=== PATIENT | female | born 1965 | race Asian ===

== ENCOUNTER → 2016-12-22 | Emergency (ER) | payer BC, OTHER ==
[~2016-12-22] MED LIST: ACETAMINOPHEN 325 MG TABLET (FP) ONE; ACETAMINOPHEN 500 MG TABLET (FP) PO ONE; CEFTRIAXONE 1 GM in DEXTROSE 5%-WATER - 50 ML IVPB ONE; CEFTRIAXONE 50 ML ONE; SODIUM CHLORIDE 1,000 ML IV STA
[2016-12-22 14:35] VITALS: BMI 27.9
--- NOTE | 2016-12-22 16:49 | PDOC ---
History of Present Illness - General Chief Complaint: Pain Stated Complaint: SENT BY PCP Time Seen by Provider: 12/22/16 16:13 History Source: Patient Exam Limitations: No Limitations - History of Present Illness Travel History: No Initial Comments: 12/22/16 16:50 51-year-old female sent over by the PCP for further evaluation of ongoing urinary complaints now with suprapubic pressure and back pain. Patient is currently on day 2 of 7 of Cipro secondary to UTI that was diagnosed by Dr. Keller. Patient states has had no chills or fever but does state mild nausea with worsening symptoms. Patient denies history of recurrent UTI, hematuria, constipation, diarrhea, recent illness, or history of immunosuppression. Abdominal Pain Onset Location: reports: suprapubic Pain Radiation: reports: back Activities at Onset: reports: none Aggravating Factors: improves with: None Alleviating Factors: improves with: None Past History - Past Medical History Allergies/Adverse Reactions: Allergies Allergy/AdvReac Type Severity Reaction Status Date / Time No Known Allergies Allergy Verified 12/22/16 14:35 Home Medications: Ambulatory Orders Unobtainable [Unobtainable] 12/22/16 HTN: Yes - Psycho/Social/Smoking Cessation Hx Anxiety: No Suicidal Ideation: No Smoking History: Never smoked Hx Alcohol Use: No Drug/Substance Use Hx: No Substance Use Type: None Patient Lives Alone: No Lives with/in: spouse/SO Review of Systems - Review of Systems Able to Perform ROS?: Yes Constitutional: No: Symptoms Reported HEENTM: No: Symptoms Reported Respiratory: No: Symptoms reported Cardiac (ROS): No: Symptoms Reported ABD/GI: Yes: Abdominal cramping : Yes: Dysuria, Frequency Musculoskeletal: Yes: Back Pain Integumentary: No: Symptoms Reported Neurological: No: Symptoms reported Endocrine: No: Symptoms Reported Hematologic/Lymphatic: No: Symptoms Reported *Physical Exam - Vital Signs Last Vital Signs Temp Pulse Resp BP Pulse Ox 99.2 F 91 H 20 149/77 96 12/22/16 14:31 12/22/16 14:31 12/22/16 14:31 12/22/16 14:31 12/22/16 14:31 - Physical Exam General Appearance: Yes: Nourished, Appropriately Dressed. No: Apparent Distress HEENT: negative: Pale Conjunctivae Respiratory/Chest: positive: Lungs Clear, Normal Breath Sounds. negative: Respiratory Distress, Accessory Muscle Use Cardiovascular: positive: Regular Rhythm, Regular Rate. negative: Murmur Gastrointestinal/Abdominal: positive: Soft, Tenderness (midsuprapubic) Musculoskeletal: positive: CVA Tenderness (mild ) Extremity: positive: Normal Capillary Refill. negative: Pedal Edema ED Treatment Course - LABORATORY CBC & Chemistry Diagram: 12/22/16 17:12 12/22/16 17:12 - RADIOLOGY Radiology Studies Ordered: Category Date Time Status KIDNEY / RENAL US [US] Stat Ultrasound 12/22/16 16:34 Ordered Medical Decision Making - Medical Decision Making 12/22/16 17:02 Patient received diagnosed with UTI presently on day 2 of 7 of Cipro. Patient sent in secondary to worsening symptoms including abdominal pain and back pain since yesterday. Patient concerning for sepsis nephritis. Patient to follow labs, urine, fluids, and ultrasound 12/22/16 20:29 Pt will be given a dose of IV ceftriaxone while awaiting her ultrasound report. Patient will be discharged home with Keflex versus Cipro urine culture was sent today. 12/22/16 20:30 Selected Entries 12/22/16 18:30 Pulse Rate [ 87 Apical] Respiratory 17 Rate Blood Pressure 138/83 [Left Arm] O2 Sat by Pulse 98 Oximetry (%) Laboratory Tests 12/22/16 12/22/16 12/22/16 17:12 17:12 17:12 WBC 13.6 H Hgb 15.2 Hct 45.3 H Plt Count 180 Neutrophils % 83.0 H Sodium 138 Potassium 3.8 Chloride 101 Carbon Dioxide 26 Anion Gap 11 BUN 9 Creatinine 0.7 Creat Clearance w eGFR > 60 Random Glucose 99 Lactic Acid Calcium 9.2 Total Bilirubin 1.2 H AST 26 ALT 48 Urine Protein 1+ H Urine Ketones 1+ H Urine Blood 2+ H Ur Leukocyte Esterase Negative Urine RBC 28 Urine WBC 10 Ur Epithelial Cells Rare Urine Mucus Moderate 12/22/16 17:12 WBC Hgb Hct Plt Count Neutrophils % Sodium Potassium Chloride Carbon Dioxide Anion Gap BUN Creatinine Creat Clearance w eGFR Random Glucose Lactic Acid 1.252 Calcium Total Bilirubin AST ALT Urine Protein Urine Ketones Urine Blood Ur Leukocyte Esterase Urine RBC Urine WBC Ur Epithelial Cells Urine Mucus 12/22/16 20:47 Ultrasound sees a linear hypoechoic area in the lower pole of the right kidney which may represent a stone. There is no signs of hydronephrosis or stranding. Patient will be discharged home with Flomax and changed to Keflex. Patient given report and to follow-up with her PCP. *DC/Admit/Observation/Transfer Diagnosis at time of Disposition: Hematuria, Suprapubic pressure - Discharge Dispostion Disposition: HOME Condition at time of disposition: Improved - Referrals Referrals: Italo Keller MD [Primary Care Provider] - - Patient Instructions Printed Discharge Instructions: DI for Urinary Tract Infection (UTI), DI for Kidney Stones Additional Instructions: I have enclosed information for you to read. I am switching antibiotics to Keflex and adding Flomax to your regimen. Please follow-up with your PCP of bring copy of the ultrasound report with you.
[2016-12-22 17:15] LABS: BASOPHIL 0.2 % (0-2.0); MCH 30.1 pg (25.7-33.7); MCHC 33.5 g/dl (32.0-36.0); MEAN CELL VOLUME 89.9 fl (80-96); MEAN PLT VOLUME 9.2 fl (7.5-11.1); PLATELET COUNT 180 K/MM3 (134-434); RDW 12.6 % (11.6-15.6); WHITE BLOOD COUNT 13.6 K/mm3 (4.0-10.0)
[2016-12-22 17:18] LABS: URINE APPEARANCE CLEAR; URINE BILIRUBIN NEGATIVE (NEGATIVE); URINE COLOR YELLOW; URINE GLUCOSE (UA) NEGATIVE (NEGATIVE); URINE KETONE 1+ (NEGATIVE); URINE LEUK ESTERASE NEGATIVE (NEGATIVE); URINE NITRITE NEGATIVE (NEGATIVE); URINE UROBILINOGEN NEGATIVE E.U./dl (0.2-1.0)
[2016-12-22 17:23] LABS: URINE BLOOD 2+ (NEGATIVE); URINE PROTEIN 1+ (NEGATIVE)
[2016-12-22 17:25] LABS: URINE BACTERIA RARE /hpf (NONE SEEN); URINE HYALINE CAST 1 /lpf; URINE RBC 28 /hpf (0-3); URINE WBC 10 /hpf (3-5)
[2016-12-22 17:26] LABS: URINE MUCUS MODERATE
[2016-12-22 17:56] LABS: ALBUMIN 4.1 g/dl (3.4-5.0); ALK PHOS 102 U/L (45-117); ANION GAP 11 (8-16); BILIRUBIN,TOTAL 1.2 mg/dL (0.2-1.0); CALCIUM 9.2 mg/dL (8.5-10.1); CO2 26 mmol/L (21-32); COCKROFT - GAULT 99.45; CREATININE 0.7 mg/dL (0.55-1.02); GLUCOSE,RANDOM 99 mg/dL (74-106); SGOT/AST 26 U/L (15-37); SGPT/ALT 48 U/L (12-78); TOT PROT 8.2 g/dl (6.4-8.2)
[2016-12-22 18:39] VITALS: PULSE 87
[2016-12-22 21:02] VITALS: BP 159/87; TEMP 98.2
== END | disposition home or self-care (01) ==
LOC: JER 14:28
PROC: 3E0337Z Introduction of Electrolytic and Water Balance Substance into Peripheral Vein, Percutaneous Approach (ICD-10-PCS; principal; 2016-12-22)
PROC: 3E03329 Introduction of Other Anti-infective into Peripheral Vein, Percutaneous Approach (ICD-10-PCS; 2016-12-22)
DX: N39.0 Urinary tract infection, site not specified (principal); R31.9 Hematuria, unspecified
CPT/HCPCS: 36415; 76775-TC; 80053; 81003; 81015; 83605; 85025; 87086; 96361; 96365; 99282-25